=== PATIENT | female | born 1940 | race Caucasian/White ===

== ENCOUNTER 2024-07-15 09:25 | Inpatient (IN) | payer MEDICARE, SELFPAY ==
[2024-07-13] VITALS (13 sets, daily range): BP systolic 106–144; BP diastolic 59–110; PULSE 90; BMI 15.6; BMI 14.4
[2024-07-13 03:41] LABS: % Basophils 0.3 % (0-2); % Eosinophils 0.3 % (0-6); % Immature Granulocytes 0.7 % (0-0.5); % Lymphocytes 10.6 % (20.5-51.1); % Monocytes 7.8 % (1.7-9.3); % Neutrophils 80.3 % (42.2-75.2); Absolute Immature Granulocytes 0.1 10^3/uL (0-0.05); Absolute Lymphocytes 1.4 10^3/uL (1.2-3.4); Absolute Monocytes 1.1 10^3/uL (0.1-0.6); Absolute Neutrophils 10.8 10^3/uL (1.4-6.5); Hematocrit 33.5 % (37.0-47.0); Hemoglobin 10.1 g/dL (12.0-16.0); Mean Corp Hgb Conc. 30.1 g/dL (33.0-37.0); Mean Corpuscular Hgb 21.5 pg (27.0-31.0); Mean Corpuscular Volume 71.3 fL (81.0-99.0); Mean Platelet Volume 11.8 fL (7.4-10.4); Nucleated Red Blood Cells % 0 %; Platelet Count 342 10^3/uL (130-400); Red Cell Dist. Width 17.6 % (11.5-14.5); White Blood Cell Count 13.4 10^3/uL (4.8-10.8)
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
[2024-07-13 04:04] LABS: ALT (SGPT) 31 U/L (0-35); AST (SGOT) 30 U/L (14-36); Albumin 4.2 g/dl (3.5-5.0); Alkaline Phosphatase 98 U/L (38-126); Blood Urea Nitrogen 36 mg/dl (7-17); Calcium 9.8 mg/dl (8.4-10.2); Carbon Dioxide 21 mmol/L (22-30); Chloride 101 mmol/L (98-107); Estimated Creatinine Clearance 19 ml/min; Glucose 126 mg/dl (70-99); Potassium 4.7 mmol/L (3.5-5.1); Sodium 138 mmol/L (135-145); Total Bilirubin 0.3 mg/dl (0.2-1.3); Total Protein 7.1 g/dl (6.3-8.2); eGFR 29.76
--- NOTE | 2024-07-13 05:33 | HPS.HSE ---
Family Physician
-
Family Physician: Willy Muñoz
Chief Complaint
-
Mechanical fall with sacral vertebral fracture
History of Present Illness
This is an 82-year-old with multiple comorbidities including traumatic brain injury, supraventricular tachycardia on anticoagulation, COPD, GERD, left ureteral calculus and CKD who presents to the emergency department after a mechanical fall.
Patient was getting up to go to the bathroom when she stumbled. She did not hit her head. She initially called for a lift assist. Medical emergency medical response found to complaining of back pain as well as rib pain. She was unable to stand.
She denies chest pain, palpitations, lightheadedness or dizziness. She denies dysuria, incontinence abdominal pain nausea or vomiting.
In the emergency department she was afebrile with a blood pressure of 106/59 pulse of 76 and sat 90% on room air. Had a white count of 13.4 and the rest of her CBC was stable. Chemistries notable for BUN of 36 and a creatinine of 1.7 which is
unchanged from prior. Glucose was 126. A CT of the abdomen pelvis showed acute transversely oriented fracture of the L4 vertebral body. There is likely a chronic calcification surrounding the left distal ureteral stent with mild hydro. This is
similar to what was seen on previous imaging. CT head negative.
Medical History
Past Medical History
Past Medical History: Reports Hypercholesterolemia and Other
Additional Past Medical History:
Paroxysmal SVT
CAD
COPD
PVD
Anemia
Urolithiasis
Past Surgical History: Reports Orthopedic and Urological
Social History
Tobacco: Non-smoker
Alcohol: None
Drug: None
Personal: Single
Living: Alone
Employment: Retired
Family History
Family History: Not pertinent
Allergies / Home Medications
Allergies reflects when Allergies were last updated in [employer].
Home Medications with original date entered in [employer]
Allergy/Medication List:
Allergies
Allergy/AdvReac Type Severity Reaction Status Date / Time
amiodarone Allergy cerebral Verified 11/24/22 06:37
toxicity,
tremors
chlorhexidine Allergy itching, Verified 11/24/22 06:37
rash
diazepam Allergy DEPRESSION, Verified 11/24/22 06:37
extreme
sadness
hydromorphone Allergy HYPOTENSION Verified 11/24/22 06:37
hydromorphone HCl Allergy hypotension Verified 11/24/22 06:37
[From Dilaudid]
latex Allergy SKIN Verified 11/24/22 06:37
ERUPTIONS
Penicillins Allergy Hives;also Verified 11/24/22 06:37
hands
peeled
epinephrine [Epinephrine] AdvReac tachycardia Verified 11/24/22 06:37
/'extreme'
hospital 'cloth chux' Allergy blisters Uncoded 11/24/22 06:37
Home Medications
Systane 0.4-0.3 % as directed Ophthalmic prn Active
Metoprolol Succinate ER 25 MG take 1 tablet by mouth once daily for 30 Active
Levalbuterol Tartrate 45 MCG/ACT 2 puff as needed Inhalation every 6 hrs prn Active
Eliquis 2.5 MG 1 tablet Orally Twice a Day for 90 days Active
Prevagen 10 MG as directed Orally Oct, Not-Taking/PRN
Midodrine HCl 10 MG 1 tablet Orally Three Times a Day for 90 days Increased to 10 mg, TID on 01/07/23 Nov, Active
Flecainide Acetate 50 MG 1 tablet Orally Twice a Day for 90 days Nov, Active
Crestor 40 MG 1 tablet Orally Once a Day for 90 days Active
Advil 200 MG 1 tablet with food or milk as needed Orally Three times a day PRN for headaches Active
Cardizem CD 120 MG 1 capsule Orally Twice a Day for 90 days Decreased to 120 mg twice daily on 12/01/23 Active
Montelukast Sodium 10 MG take 1 tablet by mouth once daily Orally Once a day for 90 days prn Active
Review of Systems
-
History Source: Patient
Constitutional: Reports No Symptoms
EENT: Reports No Symptoms
Respiratory: Reports No Symptoms
Cardiac: Reports No Symptoms
Abdomen/GI: Reports No Symptoms
: Reports No Symptoms
Musculoskeletal: Reports Joint Pain
Skin: Reports No Symptoms
Neurological: Reports No Symptoms
Hematologic/Lymphatic: Reports No Symptoms
Psych: Reports No Symptoms
Physical Exam
Vital Signs
Vital Signs
Temp Pulse Resp BP Pulse Ox
97.9 F 76 18 106/59 98
07/13/24 02:57 07/13/24 05:00 07/13/24 05:00 07/13/24 05:00 07/13/24 04:30
Physical Exam
General: Well Developed, Well Nourished, No Apparent Distress and Comfortable
HEENT: NormoCephalic, Anicteric, Moist mucous membranes and Atraumatic
Respiratory: Clear
Cardiac: S1/S2 and Regular Rhythm
Breast: Deferred by me
GI: Soft, Non Tender, Non Distended and Normal Bowel Sounds
Rectal: Deferred by Provider
Genito-urinary: Deferred by me
Musculoskeletal: No Clubbing and No Cyanosis
Skin: Warm
Neuro: Alert
Hematologic/Lymphatic: No Lymphadenopathy
Psych: Anxious
Laboratory Results
-
07/13/24 03:28
07/13/24 03:28
Laboratory Results
Total Bilirubin 0.3 mg/dl (0.2-1.3) 07/13/24 03:28
AST 30 U/L (14-36) 07/13/24 03:28
ALT 31 U/L (0-35) 07/13/24 03:28
Alkaline Phosphatase 98 U/L (38-126) 07/13/24 03:28
Data Reviewed
-
CT Scan: Report Reviewed by me
Lab Data: Labs Reviewed by me
Old Records: Reviewed
Impression/Plan
-
IMPRESSION:
[id number] female with history of for multiple comorbidities including TBI, on anticoagulation with Eliquis who presents with a mechanical fall without hitting her head and suffered a S4 vertebral body fracture and now has ambulatory
dysfunction secondary to the pain. She is at high risk for subsequent fall. Head CT negative for bleeding. Chest CT with small scattered pulmonary nodules but no trauma.
PLAN:
1. Fracture/Fall - Mechanical fall with S4 vertebral body fracture. No displacement. No surgical intervention. Neurologically intact. Pain with ambulatory dysfunction.
- admit to observation
- pain control
- PT evaluation
- care coordination for likely subacute placement.
2. Arrythmia
- continue apixaban 2.5 q 12
- ? flecainide (patient unsure if still taking, will need further med rec with pmd).
- metoprolol 25 daily and cardizem 120
- continue midodrine for orthostatic hypotension, hold if hypertensive
3. COPD/Asthma - stable
- prn albuterol,
- continue montelukast
Will need to clarify medications with pmd in am.
DVT PPX - on apixaban
Code Status - ?
[2024-07-13 07:54] LABS: Urine Albumin 2+ (Neg - Trace); Urine Bilirubin Negative (Negative); Urine Character Very Cloudy (Clear); Urine Color Brown; Urine Glucose Negative (Negative); Urine Ketone Negative (Negative); Urine Leukocyte 2+ (Negative); Urine Nitrite Positive (Negative); Urine Occult Blood 4+ (Negative); Urine Urobilinogen Negative (Neg - 1+)
[2024-07-13 08:14] LABS: Urine Urothelial Cell 0-2 /LPF (FEW)
[2024-07-13 08:15] LABS: Urine Bacteria Many (Negative); Urine Red Blood Cell >100 /HPF (0-2); Urine White Cell 50-60 /HPF (0-5)
--- NOTE | 2024-07-13 08:35 | PTCARENOTE ---
Received patient from the ED at 0835.
--- NOTE | 2024-07-13 09:58 | W.PN.HOSP.TC ---
Today's Communication/Plan
-
IV antibiotics. Pain control. PT OT eval
Assessment / Plan
Assessment / Plan
Physical exam:
General: Acute on chronically ill
HEENT: Normocephalic, Atraumatic and Moist Mucous Membranes
Respiratory: Clear to Auscultation; Negative Wheezes, Rales or Rhonchi
Cardiac: Regular Rhythm and S1/S2
GI: Soft, Nontender and Nondistended
Musculoskeletal: Decreased range of motion in the back. Tenderness in the back as well. No Clubbing, No Cyanosis and No Edema
Neuro: Awake, Alert and Oriented, mild cognitive deficits
Psych: Calm
A/P:
Acute on chronic back pain:
CT pelvis shows transverse fracture of the sacrococcygeal junction
CT of the chest shows T9 fracture, undetermined acuity and chronic fracture T5
Start lidocaine patch and Tylenol 1 g every 8 hours. Also start tramadol as needed for severe pain. Start bowel regimen as well.
PT OT eval
Discussed with son at bedside
Fall/ambulatory dysfunction:
PT OT
industrial maintenance manager eval
Possible UTI:
Abnormal UA
Leukocytosis
Start IV Rocephin
Follow-up urine culture
COPD/asthma:
At risk of exacerbation
CT of the chest no PE but emphysematous changes
Hold off on systemic steroids
Continue current inhalers
Monitor respiratory status closely
Orthostatic hypotension:
Continue midodrine
Paroxysmal atrial tachycardia/possible paroxysmal A-fib:
Continue rate control agents, metoprolol succinate 25 mg daily and diltiazem 130 mg every 12 hours.
Continue antiarrhythmic, flecainide 50 mg p.o. every 12 hours
Continue anticoagulant, Eliquis 2.5 mg twice a day
Obtain twelve-lead EKG to monitor QTc
Continue cardiac monitoring
Hyperlipidemia:
Continue home statin
Cognitive deficits:
Monitor mental status and behavior
DVT prophylaxis:
Eliquis
CODE STATUS:
DNR-confirmed with patient and son at bedside today
Time spent 55 minutes
Anticipated Discharge: 24 - 48 hours
Subjective/Interval History
-
Date of Service: July 13, 2024
Patient does complain of pain in her back. Some shortness of breath but chronic. She is not sure if she does have urinary symptoms. Afebrile
Objective Data
-
Labs:
Laboratory Results
07/13/24
03:28
WBC 13.4 H
Hgb 10.1 L
Hct 33.5 L
Plt Count 342
Sodium 138
Potassium 4.7
Chloride 101
Carbon Dioxide 21 L
BUN 36 H
Creatinine 1.7 H
Glucose 126 H
Calcium 9.8
Total Bilirubin 0.3
AST 30
ALT 31
Alkaline Phosphatase 98
Vital Signs:
Vital Signs
Temp Pulse Resp BP Pulse Ox
98.4 F 91 20 130/92 96
07/13/24 08:34 07/13/24 08:34 07/13/24 08:34 07/13/24 08:34 07/13/24 08:34
[2024-07-13] MEDS: TOPROL XL 25 MG PO (11:25)
[2024-07-13] MEDS: TYLENOL PO (11:26)
[2024-07-13] MEDS: ELIQUIS 2.5 MG PO ×2 (11:26→20:13)
[2024-07-13] MEDS: CARDIZEM SR 120 MG PO ×2 (11:26→20:13)
[2024-07-13] MEDS: TYLENOL 650 MG PO (11:26)
[2024-07-13] MEDS: REFRESH CELLUVISC GEL BOTH EYES (11:44)
--- NOTE | 2024-07-13 12:38 | CM ---
CM reviewed chart, met with patient bedside, son, Torito, present in room. Patient resides independently in a two story home, two steps to enter, full flight of stairs to second floor. Patient has a walker on each floor if needed. Patient reports
history of [facility] in past, [facility] after hip surgery. Patient PCP Dr. Muñoz, pharmacy [facility] [place], confirm prescription coverage. Patient denies any insecurities at home, reports she has assistance from her son. Son would like patient
to discharge to short term rehab prior to returning home, reports they have been looking into assisted living for patient, patient would prefer to return home. SAEID reviewed, signed, placed in chart, patient provided with copy. CM will watch for
PT/OT evals for SNF/VN recommendations. CM will continue to follow for all discharge planning needs.
Plan; watch for PT/OT evals for SNF/VN recs.
[2024-07-13] MEDS: ProAmatine 10 MG PO ×2 (12:43→17:45)
[2024-07-13] MEDS: MIRALAX 17 GRAMS PO (12:43)
[2024-07-13] MEDS: LIDOCAINE 4% PATCH 1 PATCH TOPICAL (12:43)
[2024-07-13] MEDS: TAMBOCOR 50 MG PO ×2 (13:01→22:51)
[2024-07-13] MEDS: ROCEPHIN 1000 MG IV (14:28)
[2024-07-13] MEDS: STERILE WATER FOR INJECTION 10 ML IV (14:28)
[2024-07-13] MEDS: ULTRAM 25 MG PO ×2 (17:43→23:43)
[2024-07-13] MEDS: TYLENOL 1000 MG PO ×2 (17:43→23:01)
--- NOTE | 2024-07-13 18:07 | PTCARENOTE ---
RN repositioned patient in bed. Patient states, 'I can't take this pain in my back.' Ultram given for 7/10 low back pain. Patient refused a softcare overlay.
[2024-07-13] MEDS: CRESTOR 40 MG PO (20:14)
[2024-07-13] MEDS: SENOKOT 8.6 MG PO (20:14)
[2024-07-13] MEDS: SINGULAIR 10 MG PO (20:14)
[2024-07-14 06:54] LABS: % Basophils 0.3 % (0-2); % Immature Granulocytes 0.4 % (0-0.5); % Lymphocytes 10.2 % (20.5-51.1); % Monocytes 7.8 % (1.7-9.3); % Neutrophils 79.3 % (42.2-75.2); Absolute Eosinophils 0.3 10^3/uL (0-0.7); Absolute Immature Granulocytes 0.1 10^3/uL (0-0.05); Absolute Lymphocytes 1.3 10^3/uL (1.2-3.4); Hematocrit 27.7 % (37.0-47.0); Hemoglobin 8.5 g/dL (12.0-16.0); Mean Corp Hgb Conc. 30.7 g/dL (33.0-37.0); Mean Corpuscular Hgb 22.1 pg (27.0-31.0); Mean Corpuscular Volume 72.1 fL (81.0-99.0); Nucleated Red Blood Cells % 0 %; Platelet Count 283 10^3/uL (130-400); Red Blood Cell Count 3.84 10^6/uL (4.20-5.40); Red Cell Dist. Width 17.7 % (11.5-14.5); White Blood Cell Count 12.6 10^3/uL (4.8-10.8)
[2024-07-14 07:10] VITALS: BP 109/63
[2024-07-14 07:39] LABS: Blood Urea Nitrogen 42 mg/dl (7-17); Calcium 9.1 mg/dl (8.4-10.2); Carbon Dioxide 21 mmol/L (22-30); Chloride 100 mmol/L (98-107); Estimated Creatinine Clearance 16 ml/min; Glucose 107 mg/dl (70-99); Potassium 4.6 mmol/L (3.5-5.1); Sodium 134 mmol/L (135-145); eGFR 26.04
[2024-07-14] MEDS: ProAmatine 10 MG PO ×3 (08:46→18:27)
[2024-07-14] MEDS: CARDIZEM SR 120 MG PO ×2 (08:46→20:20)
[2024-07-14] MEDS: ELIQUIS 2.5 MG PO ×2 (08:47→20:20)
[2024-07-14] MEDS: TOPROL XL 25 MG PO (08:47)
[2024-07-14] MEDS: TYLENOL 1000 MG PO ×3 (08:47→23:01)
[2024-07-14] MEDS: SENOKOT 8.6 MG PO ×2 (08:48→20:20)
[2024-07-14] MEDS: MIRALAX 17 GRAMS PO (08:48)
[2024-07-14] MEDS: LIDOCAINE 4% PATCH 1 PATCH TOPICAL (08:48)
[2024-07-14] MEDS: REFRESH CELLUVISC GEL 1 DROPS BOTH EYES (08:48)
[2024-07-14] MEDS: ULTRAM 25 MG PO ×2 (08:58→20:21)
[2024-07-14] MEDS: TAMBOCOR 50 MG PO ×2 (09:06→22:33)
--- NOTE | 2024-07-14 09:29 | W.PN.HOSP.TC ---
Today's Communication/Plan
-
IV fluids. IV antibiotics.
Assessment / Plan
Assessment / Plan
Physical exam:
General: Acute on chronically ill
HEENT: Normocephalic, Atraumatic and Moist Mucous Membranes
Respiratory: Clear to Auscultation; Negative Wheezes, Rales or Rhonchi
Cardiac: Regular Rhythm and S1/S2
GI: Soft, Nontender and Nondistended
Musculoskeletal: Decreased range of motion in the back. Tenderness in the back as well. No Clubbing, No Cyanosis and No Edema
Neuro: Awake, Alert and Oriented, mild cognitive deficits
Psych: Calm
A/P:
Acute on chronic back pain:
CT pelvis shows transverse fracture of the sacrococcygeal junction
CT of the chest shows T9 fracture, undetermined acuity and chronic fracture T5
Cont lidocaine patch and Tylenol 1 g every 8 hours. Also start tramadol as needed for severe pain. Cont bowel regimen as well.
PT OT eval
Discussed with son at bedside yesterday
Fall/ambulatory dysfunction:
PT OT
regulatory manager eval
Possible UTI:
Abnormal UA
Leukocytosis up to 13.4 and today down to 12.6
Continue IV Rocephin
Follow-up urine culture
TRACY on CKD:
Start IV fluid
Bladder scan if needed
Monitor renal function in a.m.
Avoid nephrotoxic
COPD/asthma:
At risk of exacerbation
CT of the chest no PE but emphysematous changes
Hold off on systemic steroids
Continue current inhalers
Monitor respiratory status closely
Orthostatic hypotension:
Continue midodrine
Paroxysmal atrial tachycardia/possible paroxysmal A-fib:
Continue rate control agents, metoprolol succinate 25 mg daily and diltiazem 130 mg every 12 hours.
Continue antiarrhythmic, flecainide 50 mg p.o. every 12 hours
Continue anticoagulant, Eliquis 2.5 mg twice a day
Obtain twelve-lead EKG to monitor QTc
Continue cardiac monitoring
Hyperlipidemia:
Continue home statin
Cognitive deficits:
Monitor mental status and behavior
DVT prophylaxis:
Eliquis
CODE STATUS:
DNR-confirmed with patient and son at bedside
Time spent 55 minutes
Anticipated Discharge: > 48 hours
Subjective/Interval History
-
Date of Service: July 14, 2024
Patient's pain is more tolerable, still some generalized weakness. Afebrile
Objective Data
-
Labs:
Laboratory Results
07/14/24
06:12
WBC 12.6 H
Hgb 8.5 L
Hct 27.7 L
Plt Count 283
Sodium 134 L
Potassium 4.6
Chloride 100
Carbon Dioxide 21 L
BUN 42 H
Creatinine 1.9 H
Glucose 107 H
Calcium 9.1
Vital Signs:
Vital Signs
Temp Pulse Resp BP Pulse Ox
98.6 F 74 16 106/63 93
07/14/24 07:10 07/14/24 08:46 07/14/24 07:10 07/14/24 08:46 07/14/24 07:10
I&O
07/13/24 07/14/24 07/15/24
06:59 06:59 06:59
Intake Total 50 / 50
Balance 50 / 50
[2024-07-14] MEDS: NSS 1000 IV ×2 (10:51→22:36)
[2024-07-14 13:27] VITALS: BP 124/72; BP 135/68; PULSE 75; PULSE 89; O2SAT 96
[2024-07-14 13:40] VITALS: BP 124/72; BP 135/68; PULSE 73; PULSE 89
[2024-07-14] MEDS: ROCEPHIN 1000 MG IV (13:56)
[2024-07-14] MEDS: STERILE WATER FOR INJECTION 10 ML IV (13:56)
[2024-07-14 15:53] VITALS: BP 128/69
[2024-07-14] MEDS: PHENERGAN 50.5 MG IV (15:58)
[2024-07-14] MEDS: SINGULAIR 10 MG PO (22:34)
[2024-07-14] MEDS: CRESTOR 40 MG PO (22:34)
[2024-07-14 23:33] VITALS: BP 118/69
[2024-07-15] MEDS: ULTRAM 25 MG PO ×2 (02:41→21:06)
[2024-07-15 07:13] VITALS: BP 101/64
[2024-07-15 07:45] LABS: % Basophils 0.5 % (0-2); % Eosinophils 2.9 % (0-6); % Immature Granulocytes 0.5 % (0-0.5); % Lymphocytes 9.6 % (20.5-51.1); % Monocytes 8.2 % (1.7-9.3); % Neutrophils 78.3 % (42.2-75.2); Absolute Basophils 0.1 10^3/uL (0-0.2); Absolute Eosinophils 0.3 10^3/uL (0-0.7); Absolute Immature Granulocytes 0.1 10^3/uL (0-0.05); Absolute Lymphocytes 1.1 10^3/uL (1.2-3.4); Absolute Monocytes 0.9 10^3/uL (0.1-0.6); Absolute Neutrophils 8.6 10^3/uL (1.4-6.5); Hematocrit 26.4 % (37.0-47.0); Hemoglobin 7.8 g/dL (12.0-16.0); Mean Corp Hgb Conc. 29.5 g/dL (33.0-37.0); Mean Corpuscular Hgb 21.2 pg (27.0-31.0); Mean Corpuscular Volume 71.7 fL (81.0-99.0); Mean Platelet Volume 12.1 fL (7.4-10.4); Nucleated Red Blood Cells % 0 %; Platelet Count 246 10^3/uL (130-400); Red Blood Cell Count 3.68 10^6/uL (4.20-5.40); Red Cell Dist. Width 17.8 % (11.5-14.5)
[2024-07-15 08:09] LABS: Blood Urea Nitrogen 36 mg/dl (7-17); Calcium 8.9 mg/dl (8.4-10.2); Carbon Dioxide 18 mmol/L (22-30); Chloride 105 mmol/L (98-107); Estimated Creatinine Clearance 17 ml/min; Glucose 85 mg/dl (70-99); Potassium 4.6 mmol/L (3.5-5.1); Sodium 136 mmol/L (135-145); eGFR 27.78
[2024-07-15] MEDS: REFRESH CELLUVISC GEL 1 DROPS BOTH EYES (08:38)
[2024-07-15] MEDS: MIRALAX 17 GRAMS PO (08:38)
[2024-07-15] MEDS: LIDOCAINE 4% PATCH 1 PATCH TOPICAL (08:38)
[2024-07-15] MEDS: TYLENOL 1000 MG PO ×3 (08:39→23:31)
[2024-07-15] MEDS: TOPROL XL 25 MG PO (08:39)
[2024-07-15] MEDS: CARDIZEM SR 120 MG PO ×2 (08:39→19:48)
[2024-07-15] MEDS: ELIQUIS 2.5 MG PO ×2 (08:39→19:48)
[2024-07-15] MEDS: ProAmatine 10 MG PO ×3 (08:39→18:09)
[2024-07-15] MEDS: SENOKOT 8.6 MG PO ×2 (08:40→19:48)
--- NOTE | 2024-07-15 08:55 | W.PN.HOSP.TC ---
Today's Communication/Plan
-
IV fluids. IV antibiotics
Assessment / Plan
Assessment / Plan
Physical exam:
General: Acute on chronically ill
HEENT: Normocephalic, Atraumatic and Moist Mucous Membranes
Respiratory: Clear to Auscultation; Negative Wheezes, Rales or Rhonchi
Cardiac: Regular Rhythm and S1/S2
GI: Soft, Nontender and Nondistended
Musculoskeletal: Decreased range of motion in the back. Tenderness in the back as well. No Clubbing, No Cyanosis and No Edema
Neuro: Awake, Alert and Oriented, generalized weakness.
Psych: Calm
A/P:
Acute on chronic back pain:
CT pelvis shows transverse fracture of the sacrococcygeal junction
CT of the chest shows T9 fracture, undetermined acuity and chronic fracture T5
Cont lidocaine patch and Tylenol 1 g every 8 hours. Also start tramadol as needed for severe pain. Cont bowel regimen as well.
PT OT eval
Discussed with son at bedside today
senior insight manager for discharge disposition when medically ready for discharge
Fall/ambulatory dysfunction:
PT OT
senior insight manager eval
Pseudomonas UTI:
Change IV Rocephin to IV cefepime
WBC 13.4--> 11
TRACY on CKD:
Continue IV fluids for one more day
Bladder scan if needed
Monitor renal function in a.m.
Avoid nephrotoxic
COPD/asthma:
At risk of exacerbation
CT of the chest no PE but emphysematous changes
Hold off on systemic steroids
Continue current inhalers
Monitor respiratory status closely
Orthostatic hypotension:
Continue midodrine
Paroxysmal atrial tachycardia/possible paroxysmal A-fib:
Continue rate control agents, metoprolol succinate 25 mg daily and diltiazem 130 mg every 12 hours.
Continue antiarrhythmic, flecainide 50 mg p.o. every 12 hours
Continue anticoagulant, Eliquis 2.5 mg twice a day
Obtain twelve-lead EKG to monitor QTc
Continue cardiac monitoring
Hyperlipidemia:
Continue home statin
Cognitive deficits:
Monitor mental status and behavior
DVT prophylaxis:
Eliquis
CODE STATUS:
DNR-confirmed with patient and son at bedside
Anticipated Discharge: > 48 hours
Subjective/Interval History
-
Date of Service: July 15, 2024
Patient still having pain on ambulation and movement but overall improved. She is alert. Afebrile
Objective Data
-
Labs:
Laboratory Results
07/15/24
06:13
WBC 11.0 H
Hgb 7.8 L
Hct 26.4 L
Plt Count 246
Sodium 136
Potassium 4.6
Chloride 105
Carbon Dioxide 18 L
BUN 36 H
Creatinine 1.8 H
Glucose 85
Calcium 8.9
Vital Signs:
Vital Signs
Temp Pulse Resp BP Pulse Ox
98.3 F 74 18 101/64 98
07/15/24 07:13 07/15/24 07:13 07/15/24 07:13 07/15/24 07:13 07/15/24 07:13
I&O
07/14/24 07/15/24 07/16/24
06:59 06:59 06:59
Intake Total 50 / 50 590 / 590
Balance 50 / 50 590 / 590
[2024-07-15] MEDS: TAMBOCOR 50 MG PO ×2 (11:32→21:13)
[2024-07-15] MEDS: NSS 1000 IV (11:34)
[2024-07-15 12:28] VITALS: PULSE 90; PULSE 93; O2SAT 88
[2024-07-15] MEDS: STERILE WATER FOR INJECTION 10 ML IV ×3 (13:27→23:32)
[2024-07-15] MEDS: MAXIPIME 1000 MG IV ×2 (13:28→23:31)
[2024-07-15 15:26] VITALS: BP 156/84
[2024-07-15 16:49] VITALS: BP 108/60
[2024-07-15 19:50] VITALS: BP 115/63
[2024-07-15] MEDS: SINGULAIR 10 MG PO (21:06)
[2024-07-15] MEDS: CRESTOR 40 MG PO (21:07)
[2024-07-15 23:25] VITALS: BP 139/63
--- NOTE | 2024-07-15 23:30 | PTCARENOTE ---
pt w/ +UTI having bright red blood w/ brown, bloody, sediment, and clots. pt c/o burning sensation, voided small amount. bladder scan 538ml, and straight cath for 550ml. Informed CHRISTIAN SCIENCE NURSE Aleshia Laws - placed Eliquis on hold. labs order.
[2024-07-16] VITALS (7 sets, daily range): BP systolic 115–138; BP diastolic 41–73; PULSE 60–70; O2SAT 90–94; BMI 14.4
[2024-07-16] MEDS: NSS 1000 IV (01:48)
[2024-07-16] MEDS: ULTRAM 25 MG PO ×3 (02:51→23:34)
[2024-07-16] MEDS: VENTOLIN NEBULES 2.5 MG INH ×2 (02:54→20:18)
[2024-07-16 03:00] LABS: % Basophils 0.2 % (0-2); % Immature Granulocytes 0.4 % (0-0.5); % Lymphocytes 13.7 % (20.5-51.1); % Monocytes 7.5 % (1.7-9.3); % Neutrophils 74.2 % (42.2-75.2); Absolute Eosinophils 0.4 10^3/uL (0-0.7); Absolute Lymphocytes 1.4 10^3/uL (1.2-3.4); Absolute Monocytes 0.8 10^3/uL (0.1-0.6); Absolute Neutrophils 7.6 10^3/uL (1.4-6.5); Hematocrit 24.5 % (37.0-47.0); Hemoglobin 7.5 g/dL (12.0-16.0); Mean Corp Hgb Conc. 30.6 g/dL (33.0-37.0); Mean Corpuscular Hgb 21.6 pg (27.0-31.0); Mean Corpuscular Volume 70.6 fL (81.0-99.0); Mean Platelet Volume 11.9 fL (7.4-10.4); Nucleated Red Blood Cells % 0 %; Platelet Count 284 10^3/uL (130-400); Red Blood Cell Count 3.47 10^6/uL (4.20-5.40); Red Cell Dist. Width 17.9 % (11.5-14.5); White Blood Cell Count 10.2 10^3/uL (4.8-10.8)
[2024-07-16 03:13] LABS: Blood Urea Nitrogen 36 mg/dl (7-17); Calcium 8.3 mg/dl (8.4-10.2); Carbon Dioxide 19 mmol/L (22-30); Chloride 109 mmol/L (98-107); Estimated Creatinine Clearance 16 ml/min; Glucose 87 mg/dl (70-99); Potassium 4.5 mmol/L (3.5-5.1); Sodium 138 mmol/L (135-145); eGFR 26.04
--- NOTE | 2024-07-16 03:40 | PTCARENOTE ---
pt is 96% on 2L when ambulating de-stats to 80%.
[2024-07-16] MEDS: CARDIZEM SR 120 MG PO ×2 (07:59→19:53)
[2024-07-16] MEDS: ProAmatine 10 MG PO ×3 (07:59→17:22)
[2024-07-16] MEDS: TYLENOL 1000 MG PO ×3 (07:59→23:34)
[2024-07-16] MEDS: REFRESH CELLUVISC GEL 1 DROPS BOTH EYES (08:00)
[2024-07-16] MEDS: SENOKOT 8.6 MG PO ×2 (08:00→19:54)
[2024-07-16] MEDS: TOPROL XL 25 MG PO (08:00)
[2024-07-16] MEDS: MIRALAX 17 GRAMS PO (08:01)
[2024-07-16] MEDS: LIDOCAINE 4% PATCH 1 PATCH TOPICAL (08:01)
--- NOTE | 2024-07-16 10:12 | W.PN.HOSP.TC ---
Today's Communication/Plan
-
Monitor hemoglobin
Discharge planning
Assessment / Plan
Assessment / Plan
Gen-AAOx3, NAD
HEENT-NC, AT, anicteric, clear oral mm
Neck-supple
CV-reg, no M, +S1/S2
Lungs-clear B/L
Abd-soft, NT, ND
Ext-no edema
Musculoskeletal-no cyanosis, clubbing
Skin-warm and dry
Neuro-grossly non-focal
Psych-calm, cooperative
Acute traumatic sacrococcygeal transverse fracture -fracture due to fall and underlying osteoporosis.
CT of the chest shows T9 fracture, undetermined acuity and chronic fracture T5
Cont lidocaine patch and Tylenol 1 g every 8 hours. Also start tramadol as needed for severe pain. Cont bowel regimen as well.
Fall/ambulatory dysfunction: Continue PT/OT. She was able to ambulate with minimal assist 10 feet with rolling walker twice with PT yesterday.
Pseudomonas UTI -currently on IV cefepime day 2.
CKD 4 - I do not feel that she has TRACY. Creatinine appears to be at baseline.
Acute on chronic anemia -suspect IV fluid induced hemodilution related acute anemia. No evidence of bleeding. Hold Eliquis until hemoglobin stabilizes. Heme check stools.
Check anemia labs. Patient agreeable to potential transfusion if needed. She did sign a consent form.
COPD/asthma:
CT of the chest no PE but emphysematous changes
Hold off on systemic steroids
Continue current inhalers
Monitor respiratory status closely
Orthostatic hypotension:
Continue midodrine
Paroxysmal atrial tachycardia/possible paroxysmal A-fib:
Continue rate control agents, metoprolol succinate 25 mg daily and diltiazem 120 mg every 12 hours.
Continue antiarrhythmic, flecainide 50 mg p.o. every 12 hours
Hold Eliquis in light of acute anemia.
Hyperlipidemia:
Continue home statin
Cognitive deficits:
Monitor mental status and behavior
CODE STATUS:
DNR-confirmed with patient and son at bedside
Dispo -anticipate SNF on discharge. Updated case management. Awaiting stabilization of hemoglobin prior to discharge.
Updated patient's son Torito on the phone. All questions answered.
Anticipated Discharge: 24 - 48 hours
Subjective/Interval History
-
Date of Service: July 16, 2024
Patient seen and examined. Complaining of chronic right flank pain.
Objective Data
-
Labs:
Laboratory Results
07/16/24 07/16/24
02:45 10:01
WBC 10.2
Hgb 7.5 L Pending
Hct 24.5 L Pending
Plt Count 284
Sodium 138
Potassium 4.5
Chloride 109 H
Carbon Dioxide 19 L
BUN 36 H
Creatinine 1.9 H
Glucose 87
Calcium 8.3 L
Vital Signs:
Vital Signs
Temp Pulse Resp BP Pulse Ox
97.9 F 77 18 130/55 91
07/16/24 07:34 07/16/24 07:34 07/16/24 07:34 07/16/24 07:34 07/16/24 07:34
I&O
07/15/24 07/16/24 07/17/24
06:59 06:59 06:59
Intake Total 590 / 590 2140 / 2140
Output Total 550 / 550
Balance 590 / 590 1590 / 1590
Review of Systems
-
History Source: Patient
All other systems: Reviewed and negative
[2024-07-16 10:13] LABS: Reticulocyte Count 1.2 % (0.4-2.8)
[2024-07-16 10:52] LABS: Hematocrit 26.5 % (37.0-47.0); Hemoglobin 7.8 g/dL (12.0-16.0)
[2024-07-16 10:57] LABS: Total Iron Binding Capacity 244 ug/dl (265-497)
[2024-07-16 10:59] LABS: Iron < 20 ug/dl (37-170)
[2024-07-16 11:16] LABS: Ferritin 19.4 ng/ml (11.1-264.0)
--- NOTE | 2024-07-16 11:44 | CM ---
CM reviewed chart, discussed with Hospitalist. CM placed call to patients son, Torito, discussed SNF recommendation, Torito will arrive to Hospital today to obtain list of SNFS that participate in MSSP program. CM will continue to follow for all discharge
planning needs.
Plan; SNF pending family decision of facilities- MSSP program.
[2024-07-16 11:48] LABS: Folate 7.1 ng/ml (2.76-20); Vitamin B12 669 pg/ml (239-931)
[2024-07-16] MEDS: TAMBOCOR 50 MG PO ×2 (12:03→23:35)
[2024-07-16] MEDS: MAXIPIME 1000 MG IV ×2 (12:10→23:37)
[2024-07-16] MEDS: STERILE WATER FOR INJECTION 10 ML IV ×2 (12:11→23:34)
[2024-07-16] MEDS: SINGULAIR 10 MG PO (23:35)
[2024-07-16] MEDS: CRESTOR 40 MG PO (23:35)
[2024-07-17] MEDS: DESYREL 12.5 MG PO (01:30)
[2024-07-17] MEDS: DESYREL PO (01:46)
--- NOTE | 2024-07-17 02:30 | PTCARENOTE ---
pt attempted to void- only able to dripple. attempted several times to void since 7pm. unable to void. pt round, distended, firm, right flank looks puffy. bladder scan for 530 and straight cath for 600 brown w/ a lot of old blood clots. Informed SENIOR ASSOCIATE
Aleshia Laws
[2024-07-17 07:34] LABS: % Basophils 0.5 % (0-2); % Eosinophils 5.1 % (0-6); % Immature Granulocytes 0.5 % (0-0.5); % Lymphocytes 16.9 % (20.5-51.1); % Monocytes 6.1 % (1.7-9.3); % Neutrophils 70.9 % (42.2-75.2); Absolute Eosinophils 0.4 10^3/uL (0-0.7); Absolute Lymphocytes 1.4 10^3/uL (1.2-3.4); Absolute Monocytes 0.5 10^3/uL (0.1-0.6); Absolute Neutrophils 5.7 10^3/uL (1.4-6.5); Hematocrit 27.8 % (37.0-47.0); Hemoglobin 8.4 g/dL (12.0-16.0); Mean Corp Hgb Conc. 30.2 g/dL (33.0-37.0); Mean Corpuscular Hgb 21.6 pg (27.0-31.0); Mean Corpuscular Volume 71.6 fL (81.0-99.0); Mean Platelet Volume 11.5 fL (7.4-10.4); Nucleated Red Blood Cells % 0 %; Platelet Count 304 10^3/uL (130-400); Red Blood Cell Count 3.88 10^6/uL (4.20-5.40); White Blood Cell Count 8.1 10^3/uL (4.8-10.8)
[2024-07-17 07:39] VITALS: BP 146/73
[2024-07-17 08:12] LABS: Blood Urea Nitrogen 33 mg/dl (7-17); Calcium 8.8 mg/dl (8.4-10.2); Carbon Dioxide 17 mmol/L (22-30); Chloride 109 mmol/L (98-107); Estimated Creatinine Clearance 17 ml/min; Glucose 92 mg/dl (70-99); Potassium 4.8 mmol/L (3.5-5.1); Sodium 139 mmol/L (135-145); eGFR 27.78
[2024-07-17] MEDS: ULTRAM 25 MG PO ×2 (09:10→15:03)
[2024-07-17] MEDS: CARDIZEM SR 120 MG PO ×2 (09:11→20:49)
[2024-07-17] MEDS: SENOKOT 8.6 MG PO ×2 (09:11→20:45)
[2024-07-17] MEDS: MILK OF MAGNESIA 30 ML PO (09:12)
[2024-07-17] MEDS: TYLENOL 1000 MG PO ×2 (09:12→15:04)
[2024-07-17] MEDS: ProAmatine 10 MG PO ×2 (09:12→15:02)
[2024-07-17] MEDS: TOPROL XL 25 MG PO (09:12)
[2024-07-17] MEDS: LIDOCAINE 4% PATCH 1 PATCH TOPICAL (09:13)
[2024-07-17] MEDS: REFRESH CELLUVISC GEL 1 DROPS BOTH EYES (09:13)
[2024-07-17] MEDS: MIRALAX 17 GRAMS PO (09:14)
[2024-07-17] MEDS: TAMBOCOR 50 MG PO ×2 (09:19→20:53)
--- NOTE | 2024-07-17 09:41 | W.PN.HOSP.TC ---
Addendum entered and electronically signed by Kosta Delgado DO 07/17/24 10:03:
Updated patient's son Torito on the phone. All questions answered.
Original Note:
Today's Communication/Plan
-
Pulse ox on room air with ambulation
Urinalysis
Resume Eliquis
Discharge planning
Stop antibiotics
Assessment / Plan
Assessment / Plan
Gen-AAOx3, NAD
HEENT-NC, AT, anicteric, clear oral mm
Neck-supple
CV-reg, no M, +S1/S2
Lungs-clear B/L
Abd-soft, NT, ND
Ext-no edema
Musculoskeletal-no cyanosis, clubbing
Skin-warm and dry
Neuro-grossly non-focal
Psych-calm, cooperative
Acute traumatic sacrococcygeal transverse fracture -fracture due to fall and underlying osteoporosis.
CT of the chest shows T9 fracture, undetermined acuity and chronic fracture T5
Cont lidocaine patch and Tylenol 1 g every 8 hours. Also start tramadol as needed for severe pain. Cont bowel regimen as well.
Fall/ambulatory dysfunction: Continue PT/OT. She was able to ambulate with minimal assist 10 feet with rolling walker twice with PT yesterday.
Asymptomatic bacteriuria -unlikely to have true UTI. Can discontinue further antibiotics. Discussed with patient.
Microscopic hematuria noted on urinalysis on admission, urine this morning looks clear. Recheck urinalysis. Follow-up with urology after discharge.
CKD 4 - I do not feel that she has TRACY. Creatinine appears to be at baseline.
Acute on chronic anemia -suspect IV fluid induced hemodilution related acute anemia. No evidence of bleeding. Hold Eliquis until hemoglobin stabilizes. Heme check stools.
Hemoglobin spontaneously improved this morning, 8.4. Anemia labs unrevealing.
COPD/asthma:
CT of the chest no PE but emphysematous changes
Hold off on systemic steroids
Continue current inhalers
Monitor respiratory status closely
May need home oxygen on discharge. Check ambulatory pulse ox on room air. Is complaining of dyspnea on exertion that is chronic.
Orthostatic hypotension:
Continue midodrine
Paroxysmal atrial tachycardia/possible paroxysmal A-fib:
Continue rate control agents, metoprolol succinate 25 mg daily and diltiazem 120 mg every 12 hours.
Continue antiarrhythmic, flecainide 50 mg p.o. every 12 hours
Resume Eliquis.
Hyperlipidemia:
Continue home statin
Cognitive deficits:
Monitor mental status and behavior
CODE STATUS:
DNR-confirmed with patient and son at bedside
Dispo -medically stable for discharge to SNF. Case management aware.
Left a voicemail for patient's son Torito to call me back.
Anticipated Discharge: Today
Subjective/Interval History
-
Date of Service: July 17, 2024
Patient seen and examined. Complaining of dyspnea on exertion.
Objective Data
-
Labs:
Laboratory Results
07/17/24
07:02
WBC 8.1
Hgb 8.4 L
Hct 27.8 L
Plt Count 304
Sodium 139
Potassium 4.8
Chloride 109 H
Carbon Dioxide 17 L
BUN 33 H
Creatinine 1.8 H
Glucose 92
Calcium 8.8
Vital Signs:
Vital Signs
Temp Pulse Resp BP Pulse Ox
97.6 F 90 20 146/73 93
07/17/24 07:39 07/17/24 07:39 07/17/24 07:39 07/17/24 07:39 07/17/24 07:39
I&O
07/16/24 07/17/24 07/18/24
06:59 06:59 06:59
Intake Total 2140 / 2140 600 / 600
Output Total 550 / 550 950 / 950
Balance 1590 / 1590 -350 / -350
Review of Systems
-
History Source: Patient
All other systems: Reviewed and negative
--- NOTE | 2024-07-17 10:14 | CM ---
Addendum entered by Iwona Avilez 07/17/24 15:15:
CM received TT that patient was made inpatient as of 07/15/24. Call placed to patients son to discuss switch to inpatient status, additional referrals sent to [facility], [facility], and [facility]. CM discussed no bed at [facility] [place], awaiting
[facility] and [facility].
Original Note:
CM reviewed with Hospitalist, stable for discharge to SNF once facility found. CM spoke with patients son, Torito, requesting referrals to [facility] [place], [facility] [place], and [facility]. Patient eligible for [facility]
waiver program, update to Milagros with [facility]. CM will continue to follow for all discharge planning needs.
Plan; SNF pending accepting facility, through [facility] waiver program.
[2024-07-17 12:36] VITALS: BMI 15.9
[2024-07-17 14:36] LABS: Urine Albumin 1+ (Neg - Trace); Urine Bilirubin Negative (Negative); Urine Character Slightly Cloudy (Clear); Urine Color Yellow; Urine Glucose Negative (Negative); Urine Ketone Negative (Negative); Urine Leukocyte 2+ (Negative); Urine Nitrite Positive (Negative); Urine Occult Blood 4+ (Negative); Urine Urobilinogen Negative (Neg - 1+)
[2024-07-17 14:43] VITALS: BP 134/54
[2024-07-17 14:43] LABS: Urine Bacteria Few (Negative); Urine Red Blood Cell 80-90 /HPF (0-2); Urine White Cell 50-60 /HPF (0-5)
[2024-07-17 14:49] VITALS: BP 134/54; PULSE 73; O2SAT 95
[2024-07-17 14:50] VITALS: BP 122/34; BP 134/54; PULSE 73; O2SAT 95
[2024-07-17 15:42] VITALS: BP 122/34; BP 134/54; PULSE 73; O2SAT 95
[2024-07-17] MEDS: ProAmatine PO (18:03)
[2024-07-17] MEDS: ELIQUIS 2.5 MG PO (20:45)
[2024-07-17] MEDS: SINGULAIR 10 MG PO (20:50)
[2024-07-17] MEDS: CRESTOR 40 MG PO (20:51)
[2024-07-17] MEDS: BENADRYL 6.25 MG IV (22:07)
[2024-07-17 23:43] VITALS: BP 148/69
[2024-07-18] MEDS: TYLENOL 1000 MG PO ×3 (00:23→15:24)
[2024-07-18 06:00] VITALS: BMI 15.1
[2024-07-18 07:29] VITALS: BP 155/76
[2024-07-18] MEDS: ELIQUIS 2.5 MG PO ×2 (07:33→20:03)
[2024-07-18] MEDS: TOPROL XL 25 MG PO (07:34)
[2024-07-18] MEDS: REFRESH CELLUVISC GEL 1 DROPS BOTH EYES (07:34)
[2024-07-18] MEDS: CARDIZEM SR 120 MG PO ×2 (07:34→20:04)
[2024-07-18] MEDS: LIDOCAINE 4% PATCH 1 PATCH TOPICAL (07:35)
[2024-07-18] MEDS: MIRALAX PO (07:35)
[2024-07-18] MEDS: ProAmatine PO (07:36)
[2024-07-18] MEDS: SENOKOT PO ×2 (07:38→20:03)
--- NOTE | 2024-07-18 09:37 | W.PN.HOSP.TC ---
Addendum entered and electronically signed by Kosta Delgado DO 07/18/24 12:33:
Will ask urology to comment on hematuria, urinary retention.
Updated primary care doctor on the phone, Dr. Willy Santillan, at the request of the patient.
Original Note:
Today's Communication/Plan
-
Discharge planning
Assessment / Plan
Assessment / Plan
Gen-AAOx3, NAD
HEENT-NC, AT, anicteric, clear oral mm
Neck-supple
CV-reg, no M, +S1/S2
Lungs-clear B/L
Abd-soft, NT, ND
Ext-no edema
Musculoskeletal-no cyanosis, clubbing
Skin-warm and dry
Neuro-grossly non-focal
Psych-calm, cooperative
Acute traumatic sacrococcygeal transverse fracture -fracture due to fall and underlying osteoporosis.
CT of the chest shows T9 fracture, undetermined acuity and chronic fracture T5
Cont lidocaine patch and Tylenol 1 g every 8 hours. Also start tramadol as needed for severe pain. Cont bowel regimen as well.
Fall/ambulatory dysfunction: Continue PT/OT. She was able to ambulate with minimal assist 10 feet with rolling walker twice with PT yesterday.
Asymptomatic bacteriuria -unlikely to have true UTI. Can discontinue further antibiotics. Discussed with patient.
Chronic hematuria - microscopic hematuria noted on urinalysis on admission, urine this morning looks clear. Looking at previous urinalyses over the past few years, she has had microscopic hematuria. Has never been evaluated. Currently does not
have a urologist. 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 Follow-up with urology after discharge.
Hunter catheter inserted 07/17 for urinary retention. Etiology of urinary retention unclear but possibility includes hematuria. I would prefer to discharge with Hunter catheter but patient is opposed and wants to do a voiding trial prior to discharge.
CKD 4 - I do not feel that she has TRACY. Creatinine appears to be at baseline.
Acute on chronic anemia -suspect IV fluid induced hemodilution related acute anemia. No evidence of bleeding. Hold Eliquis until hemoglobin stabilizes. Heme check stools.
Hemoglobin spontaneously improved this morning, 8.4. Anemia labs unrevealing.
COPD/asthma:
CT of the chest no PE but emphysematous changes
Hold off on systemic steroids
Continue current inhalers
Monitor respiratory status closely
May need home oxygen on discharge. Check ambulatory pulse ox on room air. Is complaining of dyspnea on exertion that is chronic.
Orthostatic hypotension:
Continue midodrine
Paroxysmal atrial tachycardia/possible paroxysmal A-fib:
Continue rate control agents, metoprolol succinate 25 mg daily and diltiazem 120 mg every 12 hours.
Continue antiarrhythmic, flecainide 50 mg p.o. every 12 hours, continue Eliquis.
Hyperlipidemia:
Continue home statin
Cognitive deficits:
Monitor mental status and behavior
CODE STATUS:
DNR-confirmed with patient and son at bedside
Dispo -medically stable for discharge to SNF. Case management aware. Outpatient follow-up with PCP and urology.
Anticipated Discharge: Today
Subjective/Interval History
-
Date of Service: July 18, 2024
Patient seen and examined. No complaints.
Objective Data
-
Vital Signs:
Vital Signs
Temp Pulse Resp BP Pulse Ox
98.2 F 90 20 155/76 95
07/18/24 07:29 07/18/24 07:34 07/18/24 07:29 07/18/24 07:34 07/18/24 07:29
I&O
07/17/24 07/18/24 07/19/24
06:59 06:59 06:59
Intake Total 600 / 600 1320 / 1320
Output Total 950 / 950 2920 / 2920
Balance -350 / -350 -1600 / -1600
Review of Systems
-
History Source: Patient
All other systems: Reviewed and negative
[2024-07-18] MEDS: TAMBOCOR 50 MG PO ×2 (10:50→20:10)
--- NOTE | 2024-07-18 11:22 | CM ---
CM spoke with Constanza from [facility], able to accept patient tomorrow. CM met with patient and son, Torito, bedside, agreeable to [facility]. Update to nurse and Hospitalist. CM will continue to follow for all discharge planning needs.
Plan; [facility] tomorrow.
[2024-07-18] MEDS: ProAmatine 10 MG PO ×2 (13:15→17:17)
[2024-07-18 13:16] VITALS: BP 132/66
--- NOTE | 2024-07-18 13:26 | CONS.URO ---
Addendum entered and electronically signed by Micheal Acevedo MD 07/18/24 14:52:
PE: elderly female playing card game on tablet
thin
abdomen - soft
no flank tenderness
Hunter: darkly bloody urine
Pt indicates that she is to be transferred 'to [facility]' tomorrow and does not 'want to lose the bed'; consequently, left ureteral stent will NOT be performed prior to transfer but will happen in our ASC at a later date.
Rec: d/c Hunter
Original Note:
Consultation
-
Performing Provider: Curtis
Reason for Consultation: hematuria
Medical History
History of Present Illness
82 yo female admitted with sacral fracture
long h/o recurrent nephrolithiasis
Past Medical History
Past Medical History: Other (traumatic brain injury, supraventricular tachycardia on anticoagulation, COPD, GERD, left ureteral calculus and CKD)
Past Surgical History: Urological (multiple ureteroscopies)
Allergies/Home Medications
Allergies
Allergy/AdvReac Type Severity Reaction Status Date / Time
amiodarone Allergy cerebral Verified 11/24/22 06:37
toxicity,
tremors
chlorhexidine Allergy itching, Verified 11/24/22 06:37
rash
diazepam Allergy DEPRESSION, Verified 11/24/22 06:37
extreme
sadness
hydromorphone Allergy HYPOTENSION Verified 11/24/22 06:37
hydromorphone HCl Allergy hypotension Verified 11/24/22 06:37
[From Dilaudid]
latex Allergy SKIN Verified 11/24/22 06:37
ERUPTIONS
Penicillins Allergy Hives;also Verified 11/24/22 06:37
hands
peeled
epinephrine [Epinephrine] AdvReac tachycardia Verified 11/24/22 06:37
/'extreme'
hospital 'cloth chux' Allergy blisters Uncoded 11/24/22 06:37
Home Medications
�Medication �Instructions �Recorded �Confirmed �Type
rosuvastatin 40 mg tablet (Crestor) 40 mg PO HS High cholesterol 06/08/17 07/13/24 History
polyethylene glycol 3350 17 gram 17 g PO PRN PRN constipation 09/10/22 07/13/24 History
oral powder packet (Miralax)
sodium chloride 3 % nasal mist 2 spray intranasal PRN PRN nasal 09/10/22 07/13/24 History
(Saline Nasal Mist) dryness
apixaban 2.5 mg tablet (Eliquis) 2.5 mg PO BID Blood clot 11/30/22 07/13/24 Rx
prevention/tx #60 tabs
diltiazem HCl 120 mg 120 mg PO BID Arrhythmia 07/13/24 07/13/24 History
capsule,extended release 24 hr
(Cartia XT)
flecainide 50 mg tablet 50 mg PO Q12H Arrhythmia 07/13/24 07/13/24 History
metoprolol tartrate 25 mg tablet 25 mg PO DAILY Arrhythmia 07/13/24 07/13/24 History
midodrine 10 mg tablet 10 mg PO TID ORTHOSTATIC 07/13/24 07/13/24 History
HYPOTENSION
Physical Exam
Vital Signs
Vital Signs
Temp Pulse Resp BP Pulse Ox
98.2 F 86 20 132/66 98
07/18/24 07:29 07/18/24 13:16 07/18/24 07:29 07/18/24 13:16 07/18/24 13:06
Lab / Testing Results
Laboratory Results
07/17/24 07:02
07/17/24 07:02
Assessment / Plan
-
Pseudomonas UTI
Left ureteral stent
hematuria from above factors
Rec: will arrange for cystoscopy with stent removal
tx UTI per micro
Data Reviewed
-
CT Scan: Image personally visualized and interpreted (left ureteral stent in place)
Lab Data: Labs Reviewed
Old Records: Reviewed
[2024-07-18 15:17] VITALS: BP 130/53
[2024-07-18 15:26] VITALS: BP 138/61; PULSE 79; O2SAT 98
[2024-07-18 17:16] VITALS: BP 127/61
--- NOTE | 2024-07-18 17:33 | PTCARENOTE ---
Patient AAOx2, VSS, Patient in NAD. Patient tolerating ambulating to hallway with walker and stand by assist. Patient up in chair. Free from falls. Patient tolerating regular diet, no nausea or vomiting. Hunter in place. call ma in reach. safety
maintained. will continue to monitor.
[2024-07-18] MEDS: SINGULAIR 10 MG PO (20:04)
[2024-07-18] MEDS: CRESTOR 40 MG PO (20:04)
[2024-07-18 23:06] VITALS: BP 122/50
[2024-07-19] MEDS: TYLENOL 1000 MG PO ×2 (00:14→08:04)
[2024-07-19 06:00] VITALS: BMI 15.3
[2024-07-19 07:45] VITALS: BP 126/52
[2024-07-19] MEDS: MIRALAX PO (08:02)
[2024-07-19] MEDS: ELIQUIS 2.5 MG PO (08:03)
[2024-07-19] MEDS: ProAmatine 10 MG PO (08:03)
[2024-07-19] MEDS: LIDOCAINE 4% PATCH 1 PATCH TOPICAL (08:06)
[2024-07-19] MEDS: REFRESH CELLUVISC GEL 1 DROPS BOTH EYES (08:06)
[2024-07-19] MEDS: CARDIZEM SR 120 MG PO (08:08)
[2024-07-19] MEDS: TOPROL XL 25 MG PO (08:08)
[2024-07-19] MEDS: SENOKOT PO (08:20)
[2024-07-19 09:11] LABS: % Basophils 0.4 % (0-2); % Eosinophils 4.7 % (0-6); % Immature Granulocytes 0.5 % (0-0.5); % Lymphocytes 18.9 % (20.5-51.1); % Monocytes 6.6 % (1.7-9.3); % Neutrophils 68.9 % (42.2-75.2); Absolute Eosinophils 0.4 10^3/uL (0-0.7); Absolute Lymphocytes 1.4 10^3/uL (1.2-3.4); Absolute Monocytes 0.5 10^3/uL (0.1-0.6); Absolute Neutrophils 5.1 10^3/uL (1.4-6.5); Hematocrit 27.7 % (37.0-47.0); Hemoglobin 8.2 g/dL (12.0-16.0); Mean Corp Hgb Conc. 29.6 g/dL (33.0-37.0); Mean Corpuscular Hgb 21.1 pg (27.0-31.0); Mean Corpuscular Volume 71.2 fL (81.0-99.0); Mean Platelet Volume 10.9 fL (7.4-10.4); Nucleated Red Blood Cells % 0 %; Platelet Count 395 10^3/uL (130-400); Red Blood Cell Count 3.89 10^6/uL (4.20-5.40); White Blood Cell Count 7.5 10^3/uL (4.8-10.8)
--- NOTE | 2024-07-19 09:28 | W.PN.HOSP.TC ---
Addendum entered and electronically signed by Kosta Delgado DO 07/30/24 12:21:
Underweight
Original Note:
Today's Communication/Plan
-
Discharge
Assessment / Plan
Assessment / Plan
Gen-AAOx3, NAD
HEENT-NC, AT, anicteric, clear oral mm
Neck-supple
CV-reg, no M, +S1/S2
Lungs-clear B/L
Abd-soft, NT, ND
Ext-no edema
Musculoskeletal-no cyanosis, clubbing
Skin-warm and dry
Neuro-grossly non-focal
Psych-calm, cooperative
Acute traumatic sacrococcygeal transverse fracture -fracture due to fall and underlying osteoporosis.
CT of the chest shows T9 fracture, undetermined acuity and chronic fracture T5
Cont lidocaine patch and Tylenol 1 g every 8 hours. Also start tramadol as needed for severe pain. Cont bowel regimen as well.
Fall/ambulatory dysfunction: Continue PT/OT. She was able to ambulate with minimal assist 10 feet with rolling walker twice with PT yesterday.
Asymptomatic bacteriuria -unlikely to have true UTI. Can discontinue further antibiotics. Discussed with patient.
Chronic hematuria - microscopic hematuria noted on urinalysis on admission, urine this morning looks clear. Looking at previous urinalyses over the past few years, she has had microscopic hematuria. Has never been evaluated. Currently does not
have a urologist. 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 Follow-up with urology after discharge.
Hunter catheter inserted 07/17 for urinary retention. Etiology of urinary retention unclear but possibility includes hematuria. I would prefer to discharge with Hunter catheter but patient is opposed and wants to do a voiding trial prior to discharge.
Left ureteral stent in place and needs follow-up with urology after discharge for removal.
CKD 4 - I do not feel that she has TRACY. Creatinine appears to be at baseline.
Acute on chronic anemia -suspect IV fluid induced hemodilution related acute anemia. No evidence of bleeding. Hold Eliquis until hemoglobin stabilizes. Stools have been brown.
Hemoglobin stable. Anemia labs unrevealing.
COPD/asthma:
CT of the chest no PE but emphysematous changes
Hold off on systemic steroids
Continue current inhalers
Monitor respiratory status closely
May need home oxygen on discharge. Check ambulatory pulse ox on room air. Is complaining of dyspnea on exertion that is chronic.
Orthostatic hypotension:
Continue midodrine
Paroxysmal atrial tachycardia/possible paroxysmal A-fib:
Continue rate control agents, metoprolol succinate 25 mg daily and diltiazem 120 mg every 12 hours.
Continue antiarrhythmic, flecainide 50 mg p.o. every 12 hours, continue Eliquis.
Hyperlipidemia:
Continue home statin
Cognitive deficits:
Monitor mental status and behavior
CODE STATUS:
DNR-confirmed with patient and son at bedside
Dispo -medically stable for discharge to SNF. Case management aware. Outpatient follow-up with PCP and urology.
32 minutes spent in discharge process.
Anticipated Discharge: Today
Subjective/Interval History
-
Date of Service: July 19, 2024
Patient seen and examined. Complaining of feeling achy. Poor sleep last night. No other new complaints.
Objective Data
-
Labs:
Laboratory Results
07/19/24
07:43
WBC 7.5
Hgb 8.2 L
Hct 27.7 L
Plt Count 395 D
Sodium Pending
Potassium Pending
Chloride Pending
Carbon Dioxide Pending
BUN Pending
Creatinine Pending
Glucose Pending
Calcium Pending
Vital Signs:
Vital Signs
Temp Pulse Resp BP Pulse Ox
97.8 F 80 17 126/52 93
07/19/24 07:45 07/19/24 07:45 07/19/24 07:45 07/19/24 08:03 07/19/24 07:45
I&O
07/18/24 07/19/24 07/20/24
06:59 06:59 06:59
Intake Total 1320 / 1320 840 / 840
Output Total 2920 / 2920 1650 / 1650
Balance -1600 / -1600 -810 / -810
Review of Systems
-
History Source: Patient
All other systems: Reviewed and negative
[2024-07-19] MEDS: TAMBOCOR 50 MG PO (09:53)
--- NOTE | 2024-07-19 10:01 | CM ---
Addendum entered by Iwona Avilez 07/19/24 10:26:
1 p.m. [facility] transport scheduled for patient, son provided with number to call for payment. Constanza at [facility] updated with transport time.
Original Note:
CM reviewed chart, spoke with patients son, Torito, discussed plan for discharge today. IMM reviewed with son over phone, agrees with discharge, form placed in chart. Constanza at [facility] admissions updated with discharge, will update with [facility] transport
time. CM will continue to follow for all discharge planning needs.
Plan; [facility] SNF, [facility] transport
[facility]
Report: [phone]
[2024-07-19 10:11] LABS: Blood Urea Nitrogen 33 mg/dl (7-17); Calcium 8.7 mg/dl (8.4-10.2); Carbon Dioxide 22 mmol/L (22-30); Chloride 102 mmol/L (98-107); Estimated Creatinine Clearance 16 ml/min; Glucose 66 mg/dl (70-99); Potassium 4.8 mmol/L (3.5-5.1); Sodium 135 mmol/L (135-145); eGFR 23.09
--- NOTE | 2024-07-19 11:34 | PN.CDI ---
CDI
- -
CDI:
Physician Documentation Request
Admit Date: 07/15/24 09:25
Dear Doctor Danny,
Clinical Indicators:
Height: 5 ft 10 in
Weight: 106 lbs 8 oz
BMI: 15.3
07/18 note, 'BMI: 15.1 (underweight)'
If possible, please provide an associated diagnosis related to the abnormal BMI (< or = to 19), such as:
Underweight
Cachectic
BMI is not significant
Other, please specify
Use of terms such as suspected, likely, concern for, or probable (associated with a specific diagnosis that is being evaluated, monitored, or treated as if it exists) are acceptable and can be coded in the inpatient setting, when documented at the
time of discharge.
Thank you,
Cielo Vizcaino RN BSN
CDI Specialist
available via tiger text
Please use your independent medical judgment in providing your response.
--- NOTE | 2024-07-19 11:35 | PTCARENOTE ---
Report given to nurse Mortensen at [facility]. Patient is AAOX2. VSS. preparing for d/c
--- NOTE | 2024-07-19 11:47 | W.DS.TRANS ---
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
-
Discharge Instructions:
Sleep Apnea Risk Low
Discharge Diagnosis/Procedures Sacrococcygeal fracture, anemia, hematuria,
urinary retention
Diet Regular
Activity As tolerated,With assistance
Driving Restrictions No driving
Bathing Restrictions None
Blood Work CBC, BMP in 1 week with your primary care doctor
Instructions:
Stand-Alone Forms:
Changes to Home Medications: No
Discharge Medications:
DC Medications w/original date entered in [employer]
rosuvastatin 40 mg tablet (Crestor) 40 mg PO HS High cholesterol 06/08/17
polyethylene glycol 3350 17 gram oral powder packet (Miralax) 17 g PO PRN PRN constipation 09/10/22
sodium chloride 3 % nasal mist (Saline Nasal Mist) 2 spray intranasal PRN PRN nasal dryness 09/10/22
apixaban 2.5 mg tablet (Eliquis) 2.5 mg PO BID Blood clot prevention/tx #60 tabs 11/30/22
diltiazem HCl 120 mg capsule,extended release 24 hr (Cartia XT) 120 mg PO BID Arrhythmia 07/13/24
flecainide 50 mg tablet 50 mg PO Q12H Arrhythmia 07/13/24
metoprolol tartrate 25 mg tablet 25 mg PO DAILY Arrhythmia 07/13/24
midodrine 10 mg tablet 10 mg PO TID ORTHOSTATIC HYPOTENSION 07/13/24
albuterol sulfate 2.5 mg/3 mL (0.083 %) solution for nebulization 2.5 mg (3 mL) inhalation R Q4HPRN PRN wheezing or shortness of breat #0 mL 07/18/24
carboxymethylcellulose sodium 1 % eye gel in a dropperette (TheraTears) 1 drops BOTH EYES DAILY #0 ea 07/18/24
lidocaine 4 % topical patch 1 patch topical DAILY #0 ea 07/18/24
metoprolol succinate 25 mg tablet,extended release 24 hr 25 mg PO DAILY #0 tabs 07/18/24
montelukast 10 mg tablet 10 mg PO HS #0 tabs 07/18/24
sennosides 8.6 mg tablet (Senna Laxative) 8.6 mg PO BID #0 tabs 07/18/24
tramadol 50 mg tablet 25 mg (1/2 x 50 mg) PO Q6HPRN PRN severe pain #5 tabs 07/18/24
Home Medication Changes
Pending Results: No
[2024-07-19 13:06] VITALS: BP 119/82
== END 2024-07-19 13:10 | DRG 543 ==
LOC: 4 WEST ACU 09:25
PROVIDERS: Hospitalist; ADMITTING PHYSICIAN Internal Medicine; ATTENDING PHYSICIAN Hospitalist; CONSULT PHYSICIAN Specialist; EMERGENCY PHYSICIAN Student in an Organized Health Care Education/Training Program; FAMILY PHYSICIAN Internal Medicine
DX: M80.08XA Age-related osteoporosis with current pathological fracture, vertebra(e), initial encounter for fracture (principal); N18.4 Chronic kidney disease, stage 4 (severe); S32.10XA Unspecified fracture of sacrum, initial encounter for closed fracture; Z68.1 Body mass index [BMI] 19.9 or less, adult; Z87.891 Personal history of nicotine dependence; W19.XXXA Unspecified fall, initial encounter; I48.0 Paroxysmal atrial fibrillation; I12.9 Hypertensive chronic kidney disease with stage 1 through stage 4 chronic kidney disease, or unspecified chronic kidney disease; R63.6 Underweight
CPT/HCPCS: 70450; 71250; 72192; 80048; 80053; 81003; 81015; 82607; 82728; 82746; 83540; 83550; 85014; 85018; 85025; 85045; 86850; 86900; 86901; 87077; 87086; 87186; 94640; 97116; 97162; 97167; 97530; 97535; 99285

== ENCOUNTER → 2024-07-27 12:43 | Outpatient (REF) | payer MEDICARE, SELFPAY ==
[2024-07-27 14:20] LABS: % Basophils 0.6 % (0-2); % Eosinophils 1.7 % (0-6); % Immature Granulocytes 0.4 % (0-0.5); % Lymphocytes 19.3 % (20.5-51.1); Absolute Basophils 0.1 10^3/uL (0-0.2); Absolute Eosinophils 0.2 10^3/uL (0-0.7); Absolute Lymphocytes 1.7 10^3/uL (1.2-3.4); Absolute Monocytes 0.6 10^3/uL (0.1-0.6); Absolute Neutrophils 6.4 10^3/uL (1.4-6.5); Hematocrit 23.8 % (37.0-47.0); Hemoglobin 6.9 g/dL (12.0-16.0); Mean Corpuscular Hgb 20.9 pg (27.0-31.0); Mean Corpuscular Volume 72.1 fL (81.0-99.0); Mean Platelet Volume 11.2 fL (7.4-10.4); Nucleated Red Blood Cells % 0 %; Platelet Count 512 10^3/uL (130-400); Red Cell Dist. Width 18.6 % (11.5-14.5)
[2024-07-27 14:27] LABS: Blood Urea Nitrogen 27 mg/dl (7-17); Calcium 8.7 mg/dl (8.4-10.2); Carbon Dioxide 28 mmol/L (22-30); Chloride 99 mmol/L (98-107); Glucose 81 mg/dl (70-99); Potassium 4.4 mmol/L (3.5-5.1); Sodium 136 mmol/L (135-145); eGFR 34.58
== END ==
LOC: OLABP 12:43
PROVIDERS: ATTENDING PHYSICIAN Family Medicine
DX: R31.9 Hematuria, unspecified (principal); N18.4 Chronic kidney disease, stage 4 (severe); D64.9 Anemia, unspecified; J44.9 Chronic obstructive pulmonary disease, unspecified; I50.32 Chronic diastolic (congestive) heart failure; J45.909 Unspecified asthma, uncomplicated; I95.1 Orthostatic hypotension; I47.10 Supraventricular tachycardia, unspecified; E78.5 Hyperlipidemia, unspecified; G31.84 Mild cognitive impairment of uncertain or unknown etiology; R63.6 Underweight; S22.079D Unspecified fracture of T9-T10 vertebra, subsequent encounter for fracture with routine healing; S22.059D Unspecified fracture of T5-T6 vertebra, subsequent encounter for fracture with routine healing; M54.50 Low back pain, unspecified
CPT/HCPCS: 36415; 80048; 85025

== ENCOUNTER → 2024-07-28 10:59 | Outpatient (REF) | payer MEDICARE, SELFPAY ==
[2024-07-28 11:28] LABS: % Basophils 0.7 % (0-2); % Immature Granulocytes 0.4 % (0-0.5); % Lymphocytes 30.1 % (20.5-51.1); % Monocytes 8.2 % (1.7-9.3); % Neutrophils 57.6 % (42.2-75.2); Absolute Basophils 0.1 10^3/uL (0-0.2); Absolute Eosinophils 0.2 10^3/uL (0-0.7); Absolute Lymphocytes 2.3 10^3/uL (1.2-3.4); Absolute Monocytes 0.6 10^3/uL (0.1-0.6); Absolute Neutrophils 4.4 10^3/uL (1.4-6.5); Hematocrit 24.6 % (37.0-47.0); Hemoglobin 7.4 g/dL (12.0-16.0); Mean Corp Hgb Conc. 30.1 g/dL (33.0-37.0); Mean Corpuscular Hgb 21.9 pg (27.0-31.0); Mean Corpuscular Volume 72.8 fL (81.0-99.0); Mean Platelet Volume 11.5 fL (7.4-10.4); Nucleated Red Blood Cells % 0 %; Platelet Count 483 10^3/uL (130-400); Red Blood Cell Count 3.38 10^6/uL (4.20-5.40); Red Cell Dist. Width 18.6 % (11.5-14.5); White Blood Cell Count 7.6 10^3/uL (4.8-10.8)
== END ==
LOC: OLABPG 10:59
PROVIDERS: ATTENDING PHYSICIAN Family Medicine
DX: R26.2 Difficulty in walking, not elsewhere classified (principal); W19.XXXD Unspecified fall, subsequent encounter; M81.8 Other osteoporosis without current pathological fracture; R82.71 Bacteriuria; R31.9 Hematuria, unspecified; N18.4 Chronic kidney disease, stage 4 (severe); D64.9 Anemia, unspecified; J44.9 Chronic obstructive pulmonary disease, unspecified; I50.32 Chronic diastolic (congestive) heart failure; J45.909 Unspecified asthma, uncomplicated; I95.1 Orthostatic hypotension; I47.10 Supraventricular tachycardia, unspecified; E78.5 Hyperlipidemia, unspecified; G31.84 Mild cognitive impairment of uncertain or unknown etiology; R63.6 Underweight; S22.079D Unspecified fracture of T9-T10 vertebra, subsequent encounter for fracture with routine healing; S22.059D Unspecified fracture of T5-T6 vertebra, subsequent encounter for fracture with routine healing; M54.50 Low back pain, unspecified
CPT/HCPCS: 36415; 85025

== ENCOUNTER → 2024-07-31 10:23 | Outpatient (REF) | payer MEDICARE, SELFPAY ==
[2024-07-31 11:02] LABS: Hematocrit 24.8 % (37.0-47.0); Hemoglobin 7.2 g/dL (12.0-16.0); Mean Corpuscular Hgb 20.9 pg (27.0-31.0); Mean Corpuscular Volume 71.9 fL (81.0-99.0); Mean Platelet Volume 10.9 fL (7.4-10.4); Platelet Count 527 10^3/uL (130-400); Red Blood Cell Count 3.45 10^6/uL (4.20-5.40); Red Cell Dist. Width 18.6 % (11.5-14.5)
[2024-07-31 11:25] LABS: Blood Urea Nitrogen 30 mg/dl (7-17); Calcium 9.4 mg/dl (8.4-10.2); Carbon Dioxide 27 mmol/L (22-30); Chloride 100 mmol/L (98-107); Glucose 81 mg/dl (70-99); Potassium 4.7 mmol/L (3.5-5.1); Sodium 138 mmol/L (135-145); eGFR 29.76
== END ==
LOC: OLABP 10:23
PROVIDERS: ATTENDING PHYSICIAN Family Medicine
DX: R26.2 Difficulty in walking, not elsewhere classified (principal); W19.XXXD Unspecified fall, subsequent encounter; M81.8 Other osteoporosis without current pathological fracture; R82.71 Bacteriuria; R31.9 Hematuria, unspecified; N18.4 Chronic kidney disease, stage 4 (severe); S22.079D Unspecified fracture of T9-T10 vertebra, subsequent encounter for fracture with routine healing; D64.9 Anemia, unspecified; S22.059D Unspecified fracture of T5-T6 vertebra, subsequent encounter for fracture with routine healing; J44.9 Chronic obstructive pulmonary disease, unspecified; M54.50 Low back pain, unspecified; I50.32 Chronic diastolic (congestive) heart failure; J45.909 Unspecified asthma, uncomplicated; I95.1 Orthostatic hypotension; G31.84 Mild cognitive impairment of uncertain or unknown etiology; R63.6 Underweight; E78.5 Hyperlipidemia, unspecified
CPT/HCPCS: 36415; 80048; 85027

== ENCOUNTER 2024-08-03 10:30 | Outpatient (RCR) | payer MEDICARE, SELFPAY ==
[2024-08-03 11:35] VITALS: BP 130/55
[2024-08-03 11:52] VITALS: BP 113/59
[2024-08-03 14:08] VITALS: BP 134/60
== END 2024-08-16 23:59 | disposition home or self-care (01) ==
LOC: OID 10:30
PROVIDERS: ATTENDING PHYSICIAN Family Medicine
DX: N18.4 Chronic kidney disease, stage 4 (severe) (principal); N02.9 Recurrent and persistent hematuria with unspecified morphologic changes; D64.9 Anemia, unspecified; J44.9 Chronic obstructive pulmonary disease, unspecified; G31.84 Mild cognitive impairment of uncertain or unknown etiology
CPT/HCPCS: 36415; 36430; 86850; 86900; 86901; 86920; P9016

== ENCOUNTER → 2024-08-06 10:22 | Outpatient (REF) | payer MEDICARE, SELFPAY ==
[2024-08-06 13:16] LABS: % Basophils 0.9 % (0-2); % Eosinophils 6.2 % (0-6); % Immature Granulocytes 0.3 % (0-0.5); % Lymphocytes 31.3 % (20.5-51.1); % Monocytes 12.1 % (1.7-9.3); % Neutrophils 49.2 % (42.2-75.2); Absolute Basophils 0.1 10^3/uL (0-0.2); Absolute Eosinophils 0.4 10^3/uL (0-0.7); Absolute Lymphocytes 2.2 10^3/uL (1.2-3.4); Absolute Monocytes 0.8 10^3/uL (0.1-0.6); Absolute Neutrophils 3.4 10^3/uL (1.4-6.5); Hematocrit 29.3 % (37.0-47.0); Hemoglobin 8.7 g/dL (12.0-16.0); Mean Corp Hgb Conc. 29.7 g/dL (33.0-37.0); Mean Corpuscular Hgb 22.4 pg (27.0-31.0); Mean Corpuscular Volume 75.5 fL (81.0-99.0); Mean Platelet Volume 11.1 fL (7.4-10.4); Nucleated Red Blood Cells % 0 %; Platelet Count 468 10^3/uL (130-400); Red Blood Cell Count 3.88 10^6/uL (4.20-5.40); Red Cell Dist. Width 21.7 % (11.5-14.5); White Blood Cell Count 6.9 10^3/uL (4.8-10.8)
[2024-08-06 13:22] LABS: Blood Urea Nitrogen 29 mg/dl (7-17); Calcium 9.6 mg/dl (8.4-10.2); Carbon Dioxide 26 mmol/L (22-30); Chloride 103 mmol/L (98-107); Glucose 71 mg/dl (70-99); Potassium 4.6 mmol/L (3.5-5.1); Sodium 139 mmol/L (135-145)
== END ==
LOC: OLABP 10:22
PROVIDERS: ATTENDING PHYSICIAN Family Medicine
DX: R26.2 Difficulty in walking, not elsewhere classified (principal); W19.XXXD Unspecified fall, subsequent encounter; M81.8 Other osteoporosis without current pathological fracture; R82.71 Bacteriuria; R31.9 Hematuria, unspecified; N18.4 Chronic kidney disease, stage 4 (severe); D64.9 Anemia, unspecified; S22.079D Unspecified fracture of T9-T10 vertebra, subsequent encounter for fracture with routine healing; M54.50 Low back pain, unspecified; J44.9 Chronic obstructive pulmonary disease, unspecified; J45.909 Unspecified asthma, uncomplicated; I95.1 Orthostatic hypotension; I47.10 Supraventricular tachycardia, unspecified; E78.5 Hyperlipidemia, unspecified
CPT/HCPCS: 36415; 80048; 85025

== ENCOUNTER 2024-08-24 06:20 | Day surgery (SDC) | payer MEDICARE, SELFPAY ==
--- NOTE | 2024-08-14 14:01 | PTCARENOTE ---
Spoke to ammunition assembly i laborer at [facility], pt is being discharged to [facility] in [place] tomorrow, 08/15/24.
--- NOTE | 2024-08-22 13:14 | PTCARENOTE ---
Hgb 8.7Pilar at Dr. Acevedo's office made aware.
[2024-08-24] VITALS (20 sets, daily range): BP systolic 103–160; BP diastolic 59–115; BMI 15.6
[2024-08-24] MEDS: DEMEROL 12.5 MG IV (11:58)
[2024-08-24] MEDS: Pyridium 200 MG PO (12:15)
[2024-08-24] MEDS: NSS 1000 IV (13:51)
[2024-08-24] MEDS: TYLENOL 650 MG PO (14:12)
[2024-08-27 22:51] LABS: Stone Analysis Mass 3534 mg
== END 2024-08-24 15:19 | disposition home or self-care (01) ==
LOC: SDS 06:20
PROVIDERS: ATTENDING PHYSICIAN Specialist
DX: N20.0 Calculus of kidney (principal); N21.0 Calculus in bladder; Z18.89 Other specified retained foreign body fragments; Z87.440 Personal history of urinary (tract) infections
CPT/HCPCS: 52356; 52317; 74018; 76000; 82365; 93005; C2617

== ENCOUNTER 2025-06-22 13:15 | Emergency (ER) | payer MEDICARE, SELFPAY ==
[2025-06-22 13:21] VITALS: BP 179/108
[2025-06-22 15:11] LABS: Urine Character Cloudy (Clear)
[2025-06-22 15:23] VITALS: BMI 14.8
[2025-06-22 15:38] LABS: Urine Red Blood Cell 0-2 /HPF (0-2); Urine Squamous Cell 0-2 /LPF (Few)
[2025-06-22 16:45] VITALS: BP 159/108
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
[2025-06-22] MEDS: KEFLEX 500 MG PO (16:56)
== END 2025-06-22 17:00 | disposition home or self-care (01) ==
LOC: EMR 13:15
PROVIDERS: Emergency Medicine; EMERGENCY PHYSICIAN Emergency Medicine; FAMILY PHYSICIAN Internal Medicine Geriatric Medicine
DX: N39.0 Urinary tract infection, site not specified (principal); I10 Essential (primary) hypertension; J44.9 Chronic obstructive pulmonary disease, unspecified; G31.84 Mild cognitive impairment of uncertain or unknown etiology; K21.9 Gastro-esophageal reflux disease without esophagitis; Z87.440 Personal history of urinary (tract) infections; Z87.891 Personal history of nicotine dependence
CPT/HCPCS: 99283; 81003; 81015; 87086